=== PATIENT | female | born 1980 | race Caucasian/White ===

== ENCOUNTER → 2020-03-18 10:55 | Outpatient (CLI) | payer OTHER, SELFPAY ==
--- NOTE | ~2020-03-18 | US_ITS ---
EXAMINATION: US transvaginal DATE: 03/18/2020 11:47 INDICATION: Menorrhagia TECHNIQUE: Multiple transabdominal and endovaginal sonographic images of the pelvis were obtained. COMPARISON: None. FINDINGS: The uterus measures 9.3 x 4.7 x 6.3 cm. 1.7 cm hypoechoic fibroid at the anterior uterine fundus. The endometrial complex measures 13 mm in thickness. Within the endometrial complex at the uterine fundu s is a more discrete 1.5 x 1.0 x 1.2 cm hyperechoic nodule. The right ovary measures 3.8 x 3.0 x 2.4 cm. The left ovary measures 4.6 x 1.7 x 2.4 cm. Vascular flow identified at both ovaries on color Dop pler. There is no free fluid in the pelvis. IMPRESSION: 1. 1.7 cm fibroid at the anterior uterine fundus. 2. Relatively well-defined 1.5 cm hyperechoic endometrial nodule with differential including submucos al fibroid, endometrial polyp or less likely malignancy. Consider hysteroscopy for further evaluation . Reviewed, dictated and finalized at location B. IMPRESSION: 1. 1.7 cm fibroid at the anterior uterine fundus. 2. Relatively well-defined 1.5 cm hyperechoic endometrial nodule with different ial including submucosal fibroid, endometrial polyp or less likely malignancy. Consider hysteroscopy for further evaluation.
== END ==
PROVIDERS: Visit Provider Obstetrics & Gynecology Gynecology
DX: N92.0 Excessive and frequent menstruation with regular cycle (principal); D25.9 Leiomyoma of uterus, unspecified
CPT/HCPCS: 76830

== ENCOUNTER 2020-03-28 00:37 | Outpatient (CLI) | payer OTHER, SELFPAY ==
[2020-03-28 20:28] LABS: SARS-CoV-2 RNA PCR Negative
== END 2020-03-28 00:38 | disposition home or self-care (01) ==
LOC: ANHCOVIDDT 00:37
PROVIDERS: PCP Nurse Practitioner Family; Visit Provider Obstetrics & Gynecology Gynecology
DX: Z01.812 Encounter for preprocedural laboratory examination (principal); Z20.828 Contact with and (suspected) exposure to other viral communicable diseases
CPT/HCPCS: 87635; C9803; U0003

== ENCOUNTER 2020-03-31 00:55 | Day surgery (SDC) | payer OTHER, SELFPAY ==
[2020-03-20 09:56] VITALS: BMI 30.9
--- NOTE | 2020-03-28 15:38 | WPDANESEPPF ---
Anes - Initial Pre Proc Eval Procedure: Operation Date: 03/31/20 07:30 Proposed Procedures p Hysteroscopy, Dilation And Curettage, Possible Myosure - Jessica Calabrese MD Date/Time: 03/28/20 15:38 Surgeon: Jessica Calabrese MD Pre Op Diagnosis: Menorrahgia/ Fibroids Patient Data Age: 39 Gender: F Height: 1.63 m Weight: 81.65 kg Allergies Allergy/AdvReac Type Severity Reaction Status Date / Time cephalexin [From Keflex] Allergy lips Verified 03/31/20 06:45 swelling, rash Home Medications Medication Instructions Recorded Confirmed Type albuterol sulfate 1 - 2 puff INHALATION DIRECTED 03/20/20 03/31/20 History PRN albuterol sulfate 2.5 mg INHALATION DIRECTED PRN 03/20/20 03/31/20 History alprazolam 0.5 mg PO DAILY 03/20/20 03/31/20 History fluticasone propionate [Flonase] 1 spray INTRANASAL DAILY 03/20/20 03/31/20 History montelukast [Singulair] 10 mg PO DAILY 03/20/20 03/31/20 History Patient hx anesthesia problems: none Family hx anesthesia problems: none [facility] Past Medical History Medical History (Updated 03/28/20 @ 15:[address] MD) Anxiety Asthma Fibroid uterus Obesity Social History Social History Smoking status: Never smoker Alcohol intake: current Drinks per week: 5 Spiritual care concerns: No Anes - Eval Final PreProcedure Day of Procedure 03/28/20 15:38 Patient weight: obese Heart: regular rate and rhythm Lungs: clear to auscultation and normal air movement Airway: Mallampati scale class II Neurological: alert and oriented Last oral intake: >/= 8 hours ASA classification: III Emergent: no Anesthetic plan: proceed Anesthesia type and monitoring: general GIVS Informed Consent: The patient's anesthetic plan and its attendant risks and benefits were discussed with the patient/family/POA. Questions were solicited and answers provided to the satisfaction of the patient/family/POA.
[2020-03-31 06:05] VITALS: BP 144/89; PULSE 80; RESP 18; TEMP 36.4; O2SAT 100
[2020-03-31] MEDS: ACETAMINOPHEN 500 MG TABLET 1000 MG PO (06:30)
[2020-03-31] MEDS: LACTATED RINGERS 1,000 ML 30 ML IV CONT ×2 (06:32→08:03)
--- NOTE | 2020-03-31 07:25 | P.HP_ITS ---
History of Present Illness History of Present Illness Consent: Risks, benefits, and alternatives have been discussed and questions answered. Patient agrees to proceed with procedure. Chief complaint: Menorrahgia/ Fibroids Narrative: Kelly Jarvis is a 39 year old female with heavy cycles. Pelvic u/s showed submucosal fibroid. Recommend to proceed with hysteroscopy, D&C, and possible myosure removal. Reviewed risks of infection, bleeding, perforation, and fluid imbalance. Possible pathology also reviewed. Questions answered and patient agrees to proceed. [facility] Past Medical History Medical History (Updated 03/31/20 @ 07:28 by Jessica Calabrese MD) Anxiety Asthma Fibroid uterus Obesity Social History Social History Smoking status: Never smoker Alcohol intake: current Drinks per week: 5 Spiritual care concerns: No Meds Home Medications and Allergies Home Medications Medication Instructions Recorded Confirmed Type albuterol sulfate 1 - 2 puff INHALATION DIRECTED 03/20/20 03/31/20 History PRN albuterol sulfate 2.5 mg INHALATION DIRECTED PRN 03/20/20 03/31/20 History alprazolam 0.5 mg PO DAILY 03/20/20 03/31/20 History fluticasone propionate [Flonase] 1 spray INTRANASAL DAILY 03/20/20 03/31/20 History montelukast [Singulair] 10 mg PO DAILY 03/20/20 03/31/20 History Allergies Allergy/AdvReac Type Severity Reaction Status Date / Time cephalexin [From Keflex] Allergy lips Verified 03/31/20 06:45 swelling, rash Vital Signs Vital Signs - 24 hr 03/31/20 06:05 Temperature 97.6 F Pulse Rate 80 Respiratory Rate 18 Blood Pressure 144/89 H Pulse Oximetry 100 Exam Const: General: healthy appearing and alert Orientation/consciousness: patient oriented x3 Resp: Effort & Inspection: normal respiratory effort Auscultation: clear to auscultation bilaterally Cardio: Rate: regular rate Rhythm: regular rhythm GI: GI Palp: Yes Soft to palpation, No Tenderness to palpation present (GI) and No Palpable mass present : External Female Exam: normal external appearance Speculum Exam - Vagina: normal appearance of the vagina and normal vaginal discharge Speculum Exam - Cervix: normal appearance of the cervix Bimanual exam- vagina & uterus: enlarged (12-14 wk size, firm, wide) Bimanual Exam- Adnexa, other: normal adnexae and No adnexal tenderness Neuro: General: patient oriented x3 Assessment and Plan Assessment and plan (1) Menorrhagia: Code(s): N92.0 - Excessive and frequent menstruation with regular cycle Status: Acute Assessment and Plan: plan to evaluate with hysteroscopy and D&C (2) Fibroid uterus: Code(s): D25.9 - Leiomyoma of uterus, unspecified Status: Acute Assessment and Plan: If submucosal, plan to attempt removal with myosure.
--- NOTE | 2020-03-31 07:29 | WPDHPUPDATE1 ---
History and Physical Update Update Date/Time: 03/31/20 07:29 History and Physical has been reviewed, including an updated exam of the patient. There are NO changes in the patient's condition. Risks, benefits, and alternatives have been discussed and questions answered. Patient agrees to proceed with procedure.
[2020-03-31] MEDS: LIDOCAINE HCL 1% LOCAL INJ 20 ML VIAL 10 ML INFILTRATE (07:53)
--- NOTE | 2020-03-31 07:56 | SUR.OPER ---
650ml ns in, 650ml ns out. aware
[2020-03-31 08:03] VITALS: BP 128/87; PULSE 70; RESP 20
--- NOTE | 2020-03-31 08:04 | PM.PROC ---
Procedure Note - Detailed Date of procedure: 03/31/20 Pre-op diagnosis: Menorrahgia/ Fibroids Post-op diagnosis: same Procedure performed: D&C hysteroscopy with myosure resection of fibroid Description of procedure: The patient was taken to the operating room and placed in the dorsal lithotomy position under anesthesia. She was prepped and draped in the usual sterile fashion. [place]eskowin speculum was placed in the vagina and the cervix is grasped on the anterior lip with a tenaculum. The uterus is sounded to 8cm and the cervix is serially dilated to 8 Hegar. The diagnostic hysteroscope was placed with the stated findings. The MyoSure device was opened and placed. Under direct visualization the fibroid is removed with the MyoSure device. The MyoSure device is then removed and the sharp curette is used to sharply curette the endometrium until a good uterine cry is noted in all areas. All instruments were then removed. Sponge, instrument, and needle counts are correct per the OR staff. Anesthesia: MAC Surgeon: Jessica Calabrese MD Estimated blood loss (mL): 5 Drains: No Packing: No Pathology: yes (endometrial curettings and shavings) Complications: No immediate complications Condition: stable Findings: uterus sounds to 8 cm; large fibroid on right lateral sidewall
[2020-03-31 08:30] VITALS: BP 149/93; PULSE 59; RESP 20
[2020-03-31] MEDS: oxyCODONE HCL (*CRX) 5 MG TAB IR PO (08:36)
[2020-03-31 09:00] VITALS: BP 138/83; PULSE 61; RESP 20
== END 2020-03-31 09:22 | disposition home or self-care (01) ==
PROVIDERS: PCP Nurse Practitioner Family; Visit Provider Obstetrics & Gynecology Gynecology
PROC: 0U5B8ZZ Destruction of Endometrium, Via Natural or Artificial Opening Endoscopic (ICD-10-PCS; CPT 58563; principal; 2020-03-31 07:30)
DX: N92.0 Excessive and frequent menstruation with regular cycle (principal); D25.9 Leiomyoma of uterus, unspecified; J45.909 Unspecified asthma, uncomplicated; F41.9 Anxiety disorder, unspecified; E66.9 Obesity, unspecified; Z68.31 Body mass index [BMI] 31.0-31.9, adult
CPT/HCPCS: 58561; 88305; A9270; J1100; J1885; J2250; J2405; J2704; J3010; J7030; J7120

== ENCOUNTER → 2020-10-28 08:24 | Outpatient (CLI) | payer OTHER, SELFPAY ==
--- NOTE | ~2020-10-28 | MMUS_ITS ---
EXAMINATION: MM diagnostic jayant BI w louise, US breast BI complete HISTORY: Bilateral nipple skin changes including discoloration, flaking, itching, resolved on the rig ht, persistent abnormal left TECHNIQUE: ML, MLO and cc full field and spot 3-D tomosynthesis images of both breasts were performed and synthetic 2-D images were generated. Bilateral rotated lateral craniocaudal views. CAD analysis was submitted and interpreted. High resolution complete bilateral breast ultrasound was performed. COMPARISON: None BREAST PARENCHYMAL COMPOSITION: There are scattered areas of fibroglandular density. FINDINGS: MAMMOGRAPHIC FINDINGS: No suspicious mass or architectural distortion, malignant calcification, skin thickening or retractio n of either breast is evident.. ULTRASOUND: Right breast: 1:00 subareolar area: Septated approximately 3 x 5 x 7 mm cyst 1:00 3 cm from nipple: 1.6 x 3.1 mm sonolucency Left breast: 9:00 4 cm from nipple: Septated 4.2 x 4.5 mm cyst 11:00 7.5 cm from nipple: Up to 2 cm wide irregular hypoechoic area in the posterior soft tissues, w ithout internal vascularity, but with posterior shadowing. Ultrasound-guided biopsy is recommended. IMPRESSION: 1. Up to 2 cm per irregular hypoechoic area of left breast at 11:00 7.5 cm from nipple, with posterio r shadowing 2. Ultrasound-guided biopsy of left breast 11:00 hypoechoic area is recommended BI-RADS category 4, suspicious findings. Dr. Soler telephoned the report and ultrasound guided biopsy recommendation on 10/28/2020 at 1037 hours to [facility]. Reviewed, dictated and finalized at location A. IMPRESSION: 1. Up to 2 cm per irregular hypoechoic area of left breast at 11:00 7.5 cm from nipple, with posterior shadowing 2. Ultrasound-guided biopsy of left breast 11:00 hypoechoic area is recommended BI-RADS category 4, suspicious findings. Dr. Soler telephoned the report and ultrasound guided biopsy recommendation on at 1037 hours to [place].
== END ==
PROVIDERS: Visit Provider Obstetrics & Gynecology Gynecology
DX: N64.59 Other signs and symptoms in breast (principal); R92.8 Other abnormal and inconclusive findings on diagnostic imaging of breast
CPT/HCPCS: 76641; 77062; 77066; G0279

== ENCOUNTER 2021-02-17 17:09 | Outpatient (CLI) | payer OTHER, SELFPAY ==
--- NOTE | ~2021-02-17 | US_ITS ---
EXAMINATION: US venous doppler UE RT DATE: 02/17/2021 17:45 INDICATION: Posterior mass of the right hand TECHNIQUE: Grayscale ultrasound images without and with compression and Doppler ultrasound images of the right upper extremity veins were obtained. COMPARISON: None. FINDINGS: The right internal jugular vein, subclavian vein, axillary vein, brachial veins, basilic vein, cephal ic vein, radial vein, and ulnar vein are patent. There is superficial venous thrombosis in the dorsum of the right hand at the site of prior IV. IMPRESSION: 1. No evidence of deep venous thrombosis. 2. Superficial venous thrombosis at the dorsum of the right hand at the site of prior IV. Reviewed, dictated and finalized at location A.
== END 2021-02-17 17:10 | disposition home or self-care (01) ==
LOC: ANHIMG 17:14
PROVIDERS: PCP Nurse Practitioner Family; Visit Provider Nurse Practitioner Family
DX: M79.641 Pain in right hand (principal); I82.611 Acute embolism and thrombosis of superficial veins of right upper extremity
CPT/HCPCS: 93971

== ENCOUNTER 2021-02-20 15:50 | Outpatient (CLI) | payer OTHER, SELFPAY ==
--- NOTE | ~2021-02-20 | CT_ITS ---
EXAMINATION: CT brain wo/w con DATE: 02/20/2021 17:34 INDICATION: Dizziness. Giddiness. TECHNIQUE: Computed tomography (CT) of the head was performed without and subsequently with 100 cc Om nipaque 350 intravenous contrast. The mA was adjusted according to patient size. Iterative reconstruc tion technique was employed. Exam dose: 1210.67 mGy-cm total exam DLP. COMPARISON: None FINDINGS: Approximately 7 x 12 mm area of asymmetric hypoattenuation at the anterior limb of the righ t internal capsule suggesting chronic lacunar infarct. No intracranial mass lesion or hemorrhage or cerebrovascular accident is noted otherwise. Normal vent ricular size. No subdural or epidural hematoma is detected. There is patchy opacification of ethmoid air cells bilaterally and mild mucoperiosteal thickening of the sphenoid and maxillary sinuses and left frontal sinus. The mastoid air cells are normally developed and aerated. No fracture or bone destruction of the cranial vault. IMPRESSION: Chronic lacunar infarct in the region of the anterior limb of the right internal capsule Paranasal sinus disease Reviewed, dictated and finalized at Location [facility]. Reviewed, dictated and finalized at location B.
== END 2021-02-20 15:51 | disposition home or self-care (01) ==
PROVIDERS: PCP Nurse Practitioner Family; Visit Provider Nurse Practitioner Family
DX: R42 Dizziness and giddiness (principal); J32.8 Other chronic sinusitis
CPT/HCPCS: 70470; Q9967

== ENCOUNTER 2021-10-07 01:36 | Day surgery (SDC) | payer OTHER, SELFPAY ==
[2021-10-07 07:57] VITALS: BP 119/86; PULSE 64; RESP 18; TEMP 36.2; O2SAT 100; BMI 33.9
[2021-10-07] MEDS: LACTATED RINGERS 1,000 ML 150 ML IV CONT (08:21)
--- NOTE | 2021-10-07 08:56 | WPDANESEPPF ---
Anes - Initial Pre Proc Eval Procedure: Operation Date: 10/07/21 09:30 Proposed Procedures p Esophagogastroduodenoscopy - Coy Gong MD Date/Time: 10/07/21 08:56 Surgeon: Coy Gong MD Pre Op Diagnosis: GERD Patient Data Age: 41 Gender: F Height: 1.63 m Weight: 89.6 kg Last Vital Signs Temp 97.2 F L 10/07/21 07:57 Pulse 64 10/07/21 07:57 Resp 18 10/07/21 07:57 BP 119/86 10/07/21 07:57 Pulse Ox 100 10/07/21 07:57 Allergies Allergy/AdvReac Type Severity Reaction Status Date / Time cephalexin [From Keflex] Allergy lips Verified 10/07/21 08:09 swelling, rash Home Medications Medication Instructions Recorded Confirmed Type albuterol sulfate 1 - 2 puff INHALATION DIRECTED 03/20/20 10/07/21 History PRN albuterol sulfate 2.5 mg INHALATION DIRECTED PRN 03/20/20 10/07/21 History alprazolam 0.5 mg PO DAILY 03/20/20 10/07/21 History fluticasone propionate [Flonase] 1 spray INTRANASAL DAILY 03/20/20 10/07/21 History montelukast [Singulair] 10 mg PO DAILY 03/20/20 10/07/21 History levocetirizine [Xyzal] 5 mg PO DAILY 09/25/21 10/07/21 History Patient hx anesthesia problems: none Family hx anesthesia problems: none Results Review: All pre-operative results and documents have been reviewed as part of the pre-operative evaluation. [facility] Past Medical History Medical History (Updated 03/31/20 @ 07:28 by Jessica Calabrese MD) Anxiety Asthma Fibroid uterus Obesity Social History Social History Smoking status: Never smoker Alcohol intake: current Drinks per week: 3 Substance use: never Substance use type: does not use Living arrangements: with family Spiritual care concerns: No Anes - Eval Final PreProcedure Day of Procedure 10/07/21 08:56 Patient weight: obese Heart: regular rate and rhythm Lungs: clear to auscultation Airway: Mallampati scale class II Neurological: alert and oriented Last oral intake: >/= 8 hours ASA classification: III Emergent: no Anesthetic plan: proceed Anesthesia type and monitoring: general GIVS and standard monitoring Results Review: All pre-operative results and documents have been reviewed as part of the pre-operative evaluation. Informed Consent: The patient's anesthetic plan and its attendant risks and benefits were discussed with the patient/family/POA. Questions were solicited and answers provided to the satisfaction of the patient/family/POA.
--- NOTE | 2021-10-07 09:02 | PM.HPGS ---
History of Present Illness History of Present Illness Consent: Risks, benefits, and alternatives have been discussed and questions answered. Patient agrees to proceed with procedure. Chief complaint: GERD Narrative: Kelly Jarvis is a 41 year old female with heartburn and sour taste, tried omeprazole but did not make much of difference. Never had egd Review of Systems Constitutional: Constitutional: Denies headache(s) and Denies weakness Eyes: Eyes: Denies blurry vision ENT: Reports Normal hearing present, Denies headache(s) and Denies neck pain Cardiovascular: Cardiovascular: Denies chest pain and Denies dyspnea Respiratory: Respiratory: Denies dyspnea Gastrointestinal: Gastrointestinal: Reports no additional gastrointestinal complaints Genitourinary: Genitourinary: Denies dysuria Musculoskeletal: Musculoskeletal: Denies neck pain Integumentary/Breasts: Skin/Breast: Denies dry skin Neurologic: Reports Normal hearing present, Denies headache(s) and Denies weakness Psychiatric: Psychiatric: Denies anxiety Endocrine: Endocrine: Denies change in body appearance Hematologic/Lymphatic: Hematologic/Lymphatic: Denies easy bleeding Allergic/Immunologic: Allergic/Immunologic: Denies urticaria PMFSH Past Medical History Medical History (Updated 10/07/21 @ 09:03 by Coy Gong MD) Anxiety Asthma Fibroid uterus GERD (gastroesophageal reflux disease) Obesity Social History Social History Smoking status: Never smoker Alcohol intake: current Drinks per week: 3 Substance use: never Substance use type: does not use Living arrangements: with family Spiritual care concerns: No Meds Home Medications and Allergies Home Medications Medication Instructions Recorded Confirmed Type albuterol sulfate 1 - 2 puff INHALATION DIRECTED 03/20/20 10/07/21 History PRN albuterol sulfate 2.5 mg INHALATION DIRECTED PRN 03/20/20 10/07/21 History alprazolam 0.5 mg PO DAILY 03/20/20 10/07/21 History fluticasone propionate [Flonase] 1 spray INTRANASAL DAILY 03/20/20 10/07/21 History montelukast [Singulair] 10 mg PO DAILY 03/20/20 10/07/21 History levocetirizine [Xyzal] 5 mg PO DAILY 09/25/21 10/07/21 History Allergies Allergy/AdvReac Type Severity Reaction Status Date / Time cephalexin [From Keflex] Allergy lips Verified 10/07/21 08:09 swelling, rash Vital Signs Vital Signs - 24 hr 10/07/21 07:57 Temperature 97.2 F L Pulse Rate 64 Respiratory Rate 18 Blood Pressure 119/86 Pulse Oximetry 100 Exam Const: General: comfortable and no acute distress HENMT: General nose exam: Normal nares present Eyes: General: appearance normal, both eyes and all related structures Neck: Neck: no JVD Resp: Auscultation: clear to auscultation bilaterally Cardio: Rate: regular rate Rhythm: regular rhythm GI: Inspection: non-distended GI Palp: Yes Soft to palpation Skin: General skin exam: normal color Neuro: General: gait normal Speech: normal speech Extrem: General: normal to inspection Psych: Mental Status: mental status grossly normal Assessment and Plan Assessment and plan (1) GERD (gastroesophageal reflux disease): Code(s): K21.9 - Gastro-esophageal reflux disease without esophagitis Status: Acute Assessment and Plan: egd with bx
[2021-10-07 09:20] VITALS: BP 109/73; PULSE 65; RESP 19; O2SAT 100
[2021-10-07 09:30] VITALS: BP 115/75; PULSE 66; RESP 20; O2SAT 100
[2021-10-07 09:40] VITALS: BP 120/76; PULSE 66; RESP 20; O2SAT 100
== END 2021-10-07 10:01 | disposition home or self-care (01) ==
PROVIDERS: PCP Nurse Practitioner Family; Visit Provider Internal Medicine Gastroenterology
PROC: 0DJ08ZZ Inspection of Upper Intestinal Tract, Via Natural or Artificial Opening Endoscopic (ICD-10-PCS; CPT 43235; principal; 2021-10-07 09:30)
DX: K21.00 Gastro-esophageal reflux disease with esophagitis, without bleeding (principal); K29.70 Gastritis, unspecified, without bleeding; J45.909 Unspecified asthma, uncomplicated; F41.9 Anxiety disorder, unspecified; E66.9 Obesity, unspecified; Z68.33 Body mass index [BMI] 33.0-33.9, adult; Z79.51 Long term (current) use of inhaled steroids
CPT/HCPCS: 43239; 87081; 88305; J2001; J2704; J7120

== ENCOUNTER 2023-01-20 16:36 | Emergency (ER) | payer OTHER, SELFPAY ==
--- NOTE | 2023-01-20 16:37 | ED.FEMALEGU ---
HPI - Female Genitourinary General Chief complaint: Skin/Abscess/Foreign Body Stated complaint: vaginal issue Time Seen by Provider: 01/20/23 16:37 Source: patient, RN notes reviewed and old records reviewed Mode of arrival: ambulatory Limitations: no limitations History of Present Illness HPI Narrative: 42-year-old female presents to the [facility] with concerns that she has a tampon retained in the vagina for maybe the last week and half. Patient is nontoxic, vitals stable. States she tried checking herself that was unable to feel anything. Denies any abdominal pain. No urinary symptoms. Related Data Allergies Allergy/AdvReac Type Severity Reaction Status Date / Time cephalexin [From Keflex] Allergy Swelling Verified 01/20/23 16:52 of Lip/Tongue/Throat Review of Systems Review of Systems: All systems reviewed & are unremarkable except as noted in HPI and below Constitutional: Constitutional: Reports no additional constitutional complaints Eyes: Eyes: Reports no additional eye complaints ENT: Reports system reviewed and no additional complaints, except as documented Cardiovascular: Cardiovascular: Reports no additional cardiovascular complaints, Denies chest pain and Denies dyspnea Respiratory: Respiratory: Reports no additional respiratory complaints, Denies chest congestion, Denies cough and Denies dyspnea Gastrointestinal: Gastrointestinal: Reports no additional gastrointestinal complaints, Denies abdominal pain, Denies nausea and Denies vomiting Genitourinary: Genitourinary: Reports as per HPI Musculoskeletal: Musculoskeletal: Reports no additional musculoskeletal complaints Integumentary/Breasts: Skin/Breast: Reports system reviewed and no additional complaints, except as docu Neurologic: Reports system reviewed and no additional complaints, except as documented Psychiatric: Psychiatric: Reports no additional psychiatric complaints Allergic/Immunologic: Allergic/Immunologic: Reports no additional allergic/immunologic complaints PMFSH Comments At the time of my signature, I reviewed and agree with the nursing past medical, surgical, social, and family history. There is no relevant family history pertinent to the patient complaint. Exam Const: General: cooperative, healthy appearing, comfortable, no acute distress, well developed, alert and well nourished Nutritional Appearance: well nourished Orientation/consciousness: patient oriented x3 Limitations: no limitations HENMT: Head: normal to inspection Ears: hearing grossly normal bilaterally and external ears normal Face/Nose/Sinus: Normal external nose present, Normal nares present, Normal nasal mucous membranes and turbinates present and normal facial exam Face and sinus: normal facial exam Mouth: Yes lip normal Eyes: General: appearance normal, both eyes and all related structures Alignment and Position: alignment normal Periorbital: periorbital findings normal Pupils: Equal, round and reactive pupils present EOM: EOMs intact bilaterally Neck: Neck: normal visual inspection, full ROM, no lymphadenopathy and no meningeal signs Chest: Chest palpation & inspection: normal inspection of the chest Resp: Effort & Inspection: normal respiratory effort and able to speak in complete sentences Cardio: Rate: regular rate Rhythm: regular rhythm GI: GI Palp: No abdominal tenderness : General: Yes no CVA tenderness External Female Exam: normal external appearance Speculum Exam - Vagina: normal appearance of the vagina and abnormal vaginal discharge (large amount, thick) white and yellow Speculum Exam - Cervix: normal appearance of the cervix Other: No foreign body, tampon noted on exam Chaperoned by Cristela GARSIA Back/Spine/Pelvis: Cervical Spine: cervical ROM normal Skin: General skin exam: normal color and no rashes or lesions noted Lesions: no lesions Rashes: no rashes Wounds: no wounds Neuro: General: patient oriented x3, gait
[2023-01-20 16:48] VITALS: BP 134/85; PULSE 74; RESP 18; TEMP 36.6; O2SAT 100
== END 2023-01-20 17:10 | disposition home or self-care (01) ==
PROVIDERS: Emergency Provider Nurse Practitioner; PCP Nurse Practitioner Family
DX: N76.0 Acute vaginitis (principal)
CPT/HCPCS: 99204; G0463

== ENCOUNTER → 2023-03-29 15:50 | Outpatient (CLI) | payer OTHER, SELFPAY ==
--- NOTE | ~2023-03-29 | US_ITS ---
Pelvic ultrasound. Clinical History: Menorrhagia Technique: Realtime transabdominal and transvaginal scanning of the pelvis was performed. Color flow Doppler and Doppler spectral analysis were performed. Findings: The uterus is anteverted, and measures 9.0 x 5.3 x 6.9 cm. The endometrial stripe has a th ickness of 12 mm. Probable ill-defined intradural fibroid measures 2.6 cm in maximum diameter.. The right ovary measures 3.0 x 2.4 x 2.8 cm. No significant right ovarian or adnexal mass is seen. The left ovary measures 4.0 x 1.7 x 1.9 cm. No significant left ovarian or adnexal mass is seen. There is no evidence of free fluid in the cul de sac. Impression: 2.6 cm ill-defined uterine fibroid, on the right side. Reviewed, dictated and finalized at [facility]. [employer] Impression: 2.6 cm ill-defined uterine fibroid, on the right side.
== END ==
PROVIDERS: PCP Obstetrics & Gynecology Gynecology; Visit Provider Obstetrics & Gynecology Gynecology
DX: D25.9 Leiomyoma of uterus, unspecified (principal); N93.8 Other specified abnormal uterine and vaginal bleeding
CPT/HCPCS: 76830